=== PATIENT | female | born 1940 | race Two or more races ===

== ENCOUNTER 2020-10-02 23:57 | Emergency (ER) | payer OTHER ==
[~2020-10-02] VITALS: Ht 157.5 cm; Wt 63.5 kg
[2020-10-03] MEDS ORDERED: CRESTOR5 MG PO (00:06)
[2020-10-03] MEDS ORDERED: SYNTHROID75 MCG PO (00:07)
[2020-10-03] MEDS ORDERED: EXELON1 EAC1 TD (00:07)
[2020-10-03] MEDS ORDERED: COZAAR25 MG PO (00:07)
== END 2020-10-03 08:59 | disposition home or self-care (01) ==
LOC: ER 23:57
DX: N20.1 Calculus of ureter (principal); R10.32 Left lower quadrant pain; Z03.818 Encounter for observation for suspected exposure to other biological agents ruled out; R11.2 Nausea with vomiting, unspecified; R53.1 Weakness

== ENCOUNTER 2020-11-15 09:10 | Outpatient (CLI) | payer OTHER ==
[~2020-11-15 09:10] MED LIST: COZAAR25 MG PO; CRESTOR5 MG PO; EXELON1 EAC1 TD; SYNTHROID75 MCG PO
== END 2020-11-15 09:16 | disposition home or self-care (01) ==
LOC: RAD 09:10
PROVIDERS: ATTEND Urology
DX: N20.0 Calculus of kidney (principal)

== ENCOUNTER 2021-01-07 08:09 | Outpatient (CLI) | payer OTHER | END 2021-01-07 08:13 | disposition home or self-care (01) | LOC: RAD 08:09 | PROVIDERS: ATTEND Urology | DX: N20.0 Calculus of kidney (principal) ==

== ENCOUNTER 2021-07-28 11:42 | Outpatient (CLI) | payer OTHER | END 2021-07-28 11:44 | disposition home or self-care (01) | LOC: RAD 11:42 | PROVIDERS: ATTEND Internal Medicine Rheumatology | DX: N20.0 Calculus of kidney (principal) ==

== ENCOUNTER 2021-10-11 07:15 | Outpatient (CLI) | payer OTHER ==
[~2021-10-11] VITALS: Ht 157.5 cm; Wt 61.2 kg
== END 2021-10-11 07:23 | disposition home or self-care (01) ==
LOC: LAB 07:15
PROVIDERS: ATTEND Urology
DX: N20.1 Calculus of ureter (principal); I10 Essential (primary) hypertension; R31.0 Gross hematuria

== ENCOUNTER 2021-10-14 12:27 | Outpatient (CLI) | payer OTHER ==
[2021-10-14] MEDS ORDERED: TOPROL XL50 M1 PO (14:29)
== END 2021-10-14 12:48 | disposition home or self-care (01) ==
LOC: LAB 12:27
PROVIDERS: ATTEND Urology
DX: D68.9 Coagulation defect, unspecified (principal)

== ENCOUNTER 2021-10-19 06:25 | Day surgery (SDC) | payer OTHER ==
[~2021-10-19] VITALS: Ht 157.5 cm; Wt 62.1 kg
[~2021-10-19 06:25] MED LIST changes: +TOPROL XL50 M1 PO
== END 2021-10-19 14:00 | disposition home or self-care (01) ==
LOC: CIR.AMB 06:25
PROVIDERS: ATTEND Urology
DX: N20.1 Calculus of ureter (principal); I10 Essential (primary) hypertension; E03.9 Hypothyroidism, unspecified; M19.90 Unspecified osteoarthritis, unspecified site; Z20.822 Contact with and (suspected) exposure to COVID-19

== ENCOUNTER 2021-12-21 08:38 | Outpatient (CLI) | payer OTHER | END 2021-12-21 08:46 | disposition home or self-care (01) | LOC: LAB 08:38 | PROVIDERS: ATTEND Urology | DX: N20.0 Calculus of kidney (principal) ==

== ENCOUNTER 2022-06-30 07:16 | Outpatient (CLI) | payer OTHER | END 2022-06-30 07:17 | disposition home or self-care (01) | LOC: LAB 07:16 | PROVIDERS: ATTEND Urology | DX: N20.0 Calculus of kidney (principal) ==

== ENCOUNTER 2023-01-09 07:34 | Outpatient (CLI) | payer OTHER | END 2023-01-09 07:36 | disposition home or self-care (01) | LOC: LAB 07:34 | PROVIDERS: ATTEND Urology | DX: N20.0 Calculus of kidney (principal) ==